=== PATIENT | male | born 1955 ===

== ENCOUNTER 2021-03-10 05:33 | Day surgery (SDC) | payer MEDICARE, OTHER ==
[~2021-03-10 05:33] MED LIST: ALLOPURINOL 30300 MG PO; AMLODIPINE BESY10 MG PO; ASCORBIC ACID500 MG PO; CENTRUM SILVER1 EAC5 PO; COLCHICINE0.6 MG PO; DICLOFENAC SODI75 MG PO; FISH OIL 1,0001 EAC3 PO; GLUCOSAMINE &1 EACH PO; LASIX20 MG PO; LEVOTHYROXINE75 MC1 PO; LOPRESSOR25 MG PO; OMEPRAZOLE40 MG PO; POTASSIUM CHLO10 ME1 PO; TESTOSTERONE; TRAMADOL HCL50 MG PO; VALSARTAN320 MG PO; VITAMIN D325 MC4 PO
[2021-03-10] MEDS ORDERED: PERCOCET 5-3251 EACH PO (06:53)
[2021-03-10] MEDS ORDERED: PLAQUENIL200 MG PO (12:59)
[2021-03-11 06:32] LABS: BASOPHIL 0.2 % (0-2); EOSINOPHIL 0 % (0-7); HCT 33.9 % (42.0-52.0); HGB 11.5 g/dl (13.2-18.0); LYMPHOCYTE 10.1 % (15-48); MCH 32.7 pg (25.0-31.0); MCHC 33.9 g/dL (32.0-36.0); MCV 96.3 fL (78.0-100.0); MONOCYTE 11.6 % (0-12); MPV 10.6 fL (6.0-9.5); NEUTROPHIL 77.5 % (41-80); NRBC 0; PLT 202 K/uL (150-400); RBC 3.52 M/uL (4.70-6.00); RDW 13.3 % (11.5-14.0)
[2021-03-11 06:52] LABS: CREATININE 0.88 mg/dL (0.67-1.17); POTASSIUM 4.3 mmol/L (3.5-5.1)
[2021-03-11] MEDS ORDERED: XARELTO20 MG PO (08:45)
[2021-03-11] MEDS ORDERED: FEOSOL325 MG PO (08:45)
[2021-03-11] MEDS ORDERED: ULTRA-LIGHT RO1 EACH XX (08:47)
[2021-04-28] MEDS ORDERED: TRAMADOL HCL50 MG PO (15:41)
[2021-05-05] MEDS ORDERED: DOXYCYCLINE HY100 M2 PO (06:26)
[2021-05-05] MEDS ORDERED: PERCOCET 5-3251 EACH PO (06:51)
== END 2021-03-11 12:30 | disposition home or self-care (01) ==
LOC: FMS 05:33 → FAS 05:33 → FMS 07:15 → FAS 03-11 12:30
PROVIDERS: Orthopaedic Surgery
DX: M17.11 Unilateral primary osteoarthritis, right knee (principal); I10 Essential (primary) hypertension; I42.9 Cardiomyopathy, unspecified; E03.9 Hypothyroidism, unspecified; K21.9 Gastro-esophageal reflux disease without esophagitis; G47.30 Sleep apnea, unspecified; F41.9 Anxiety disorder, unspecified; Z86.16 Personal history of COVID-19; Z86.718 Personal history of other venous thrombosis and embolism; Z86.711 Personal history of pulmonary embolism; Z79.899 Other long term (current) drug therapy; Z99.89 Dependence on other enabling machines and devices; Z98.890 Other specified postprocedural states
CPT/HCPCS: 36415; 73560; 80048; 85025; 86850; 86900; 86901; 94010; 94760; 97116; 97162; 97166; 97530-GP; 97535; C1713; C1776; J0171; J0697; J0735; J1100; J1170; J1885; J2250; J2270; J2405; J2704; J2795; J3010; J3475; J7120

== ENCOUNTER → 2021-05-05 | Day surgery (SDC) | payer MEDICARE, OTHER ==
[~2021-05-05] VITALS: Ht 175 cm; Wt 102.0 kg
[~2021-05-05] MED LIST changes: +DOXYCYCLINE HY100 M2 PO; +FEOSOL325 MG PO; +PERCOCET 5-3251 EACH PO; +PLAQUENIL200 MG PO; +ULTRA-LIGHT RO1 EACH XX; +XARELTO20 MG PO
== END | disposition home or self-care (01) ==
LOC: FAS 06:08
DX: M76.9 Unspecified enthesopathy, lower limb, excluding foot (principal); K21.9 Gastro-esophageal reflux disease without esophagitis; G47.30 Sleep apnea, unspecified; I10 Essential (primary) hypertension; I82.491 Acute embolism and thrombosis of other specified deep vein of right lower extremity; I51.7 Cardiomegaly; Z99.89 Dependence on other enabling machines and devices; Z20.822 Contact with and (suspected) exposure to COVID-19
CPT/HCPCS: 97162; 97530-GP; J0171; J0735; J1100; J1885; J2250; J2704; J2795; J7120